=== PATIENT | male | born 1995 | race Caucasian/White ===

== ENCOUNTER 2020-02-14 20:43 | Emergency (ER) | payer MEDICAID ==
[~2020-02-14] VITALS: Ht 188 cm; Wt 75.0 kg
[2020-02-14 20:59] VITALS: BP 132/88
[2020-02-14] MEDS ORDERED: DOXYCYCLINE 100MG CAPSULE PO STA (21:32)
[2020-02-14] MEDS ORDERED: DOXY100C2 PO (21:35)
== END 2020-02-14 21:43 | disposition home or self-care (01) ==
LOC: ER 20:43
DX: S60.521A Blister (nonthermal) of right hand, initial encounter (principal); I89.1 Lymphangitis; Z88.2 Allergy status to sulfonamides; Z79.2 Long term (current) use of antibiotics; X58.XXXA Exposure to other specified factors, initial encounter; Y93.89 Activity, other specified; Y99.8 Other external cause status; Y92.89 Other specified places as the place of occurrence of the external cause
CPT/HCPCS: 99283

== ENCOUNTER 2023-09-15 00:39 | Emergency (ER) | payer MEDICAID ==
[~2023-09-15] VITALS: Ht 190.5 cm; Wt 81.8 kg
[2023-09-15 00:47] VITALS: BP 163/68; PULSE 150; RESP 16; TEMP 99; O2SAT 100
== END 2023-09-15 02:10 ==
LOC: ER 00:39
DX: R00.0 Tachycardia, unspecified (principal); F14.10 Cocaine abuse, uncomplicated; Z88.2 Allergy status to sulfonamides
CPT/HCPCS: 93005; 99283